=== PATIENT | female | born 1985 | race Caucasian/White ===

== ENCOUNTER 2018-07-22 20:25 | Emergency (ER) | END 2018-07-22 21:05 | disposition home or self-care (01) ==

== ENCOUNTER 2018-08-17 19:22 | Emergency (ER) | END 2018-08-17 23:54 | disposition home or self-care (01) ==

== ENCOUNTER 2019-01-29 16:48 | Outpatient (CLI) | payer MEDICAID ==
[~2019-01-29] VITALS: Ht 170.2 cm; Wt 76.1 kg
[~2019-01-29 16:48] MED LIST: ACET325T33 PO; ACET500C5 PO; IRON1TAB75 PO; LORA-186 PO; PREN-39 PO
[2019-01-29 17:59] VITALS: Ht 170.2 cm; Wt 76.1 kg
[2019-01-29 18:00] VITALS: BP 117/66; PULSE 77
--- NOTE | 2019-01-29 18:12 | PN ---
Triage Information Date/Time 01/29/2019 Reason for visit: Sent in from clinic to rule out DVT because of right leg swelling Weeks of Gestation 36 weeks and 6 days /Para 4 para 1 Diabetes: none Hypertention: none Objective Vital Signs Date Temp Pulse Resp B/P (MAP) Pulse Ox O2 O2 Flow FiO2 Time Delivery Rate 01/29/19 98.0 77 117/66 18:00 (83) Heart Rate: 140's Heart Rate Comments Reactive Contractions: None Exam Deferred Results/Medications Imaging Results No evidence of deep vein thrombosis. Disposition: Discharge Assessment/Plan Follow-up with the clinic as routine JIM VICK MD Jan 29, 2019 18:12
--- NOTE | 2019-01-29 18:55 | TRIAGE ---
OB Triage Datetime Report Generated by CPN: 01/29/2019 18:55 Datetime: 01/29/2019 18:06 Stage of : OB Triage Datetime: 01/29/2019 17:55 Stage of : OB Triage Assessment Type: Triage Maternal Assessment Level of Consciousness: Fully Conscious DTR's/Clonus: DTRs 2+; No Clonus Headache: Denies Blurred Vision: No Respiratory Effort: Unlabored; Regular Rhythm; Equal Expansion Breath Sounds, Left: Clear and Equal Breath Sounds, Right: Clear and Equal Nausea/Vomiting: Denies RUQ Epigastric Pain: Denies Facial Edema: None Temperature Route: Axillary Fall Risk Assessment History of Falling: (0) No Secondary Diagnosis: (0) No Ambulatory Aid: (0) Bedrest/Nurse Assist IV Therapy: (0) No Gait: (0) Normal/Bedrest/Immobile Mental Status: (0) Oriented to Own Ability Fall Score: 0 Fall Risk Score Definition: No Risk: No action required Labor Evaluation Frequency: 0 Monitor Mode: External Pattern: Normal: <= 5 Contractions in 10 Minutes Resting Tone [place]: Relaxed Heart Rate FHR Baseline Rate: 125 Monitor Mode: External US Variability: Moderate 6-25 bpm Accelerations: 10X10 Decelerations: None Category: Category I Pain Assessment Pain Scale: 6 Pain Presence: Intermittent Pain Type: Ache Pain Location: Right Leg Pain Goal: 3 Pain Relief Measures: Comfort Measures Datetime: 01/29/2019 17:53 Time of Arrival: 01/29/2019 16:35 EGA: 36.6 Arrived By: Ambulatory Arrived From: Dr. Quevedo Chief Complaint: REFERRED FROM CLINIC FOR DOPPLER STUDIES, DENIES LEAKING, BLEEDING OR UC'S Movement: Present Contractions: Denies/Absent Rupture of Membranes: Denies Vaginal Bleeding: None Vaginal Discharge: Denies Recent Sexual Intercouse: Denies Abdominal Trauma: Not Applicable Patient Complaints: None Time Provider Notified: 01/29/2019 18:06 Provider Notified: grisel Initial Plan: MONITOR, DOPPLER STUDIES BILATERAL Datetime: 01/29/2019 17:10 Labor Evaluation Frequency: x1 Monitor Mode: External Duration (sec)2399: 50 Quality: Mild Pattern: Normal: <= 5 Contractions in 10 Minutes Resting Tone [place]: Relaxed Heart Rate FHR Baseline Rate: 125 Monitor Mode: External US Variability: Moderate 6-25 bpm Accelerations: 10X10 Decelerations: None Category: Category I Pain Assessment Pain Scale: 0 Pain Presence: None/Denies Pain Type: N/A Pain Goal: 3 Pain Relief Measures: Comfort Measures Pain Assessment Comments: denies feeling
== END 2019-01-29 18:17 | disposition home or self-care (01) ==
LOC: OBT 16:48 → L-D 16:49 → OBT 18:17
PROVIDERS: ATTEND Obstetrics & Gynecology
DX: O26.893 Other specified pregnancy related conditions, third trimester (principal); M79.89 Other specified soft tissue disorders; Z3A.36 36 weeks gestation of pregnancy
CPT/HCPCS: 93970; Z7500; G0463

== ENCOUNTER 2019-02-05 18:01 | Inpatient (IN) | payer MEDICAID ==
[~2019-02-05 18:01] MED LIST changes: -ACET325T33 PO; -ACET500C5 PO; -LORA-186 PO
[2019-02-05] MEDS ORDERED: LACTATED RINGER'S 1,000 ML IV SCH (18:12)
[2019-02-05] MEDS ORDERED: OXYTOCIN 30 UNITS/LR 500 ML IV SCH ×2 (18:30)
[2019-02-05] MEDS ORDERED: BUTORPHANOL 2 MG INJ IV PRN (18:30)
[2019-02-05] MEDS ORDERED: OXYTOCIN 30 UNITS/LR 500 ML IV PRN ×2 (18:30→21:00)
[2019-02-05] MEDS ORDERED: MISOPROSTOL 200 MCG TAB PR PRN ×2 (18:30→21:00)
[2019-02-05] MEDS ORDERED: BUTORPHANOL 1 MG INJ IV PRN (18:30)
[2019-02-05] MEDS ORDERED: LIDOCAINE 1% (MPF) 30 ML INJ INJ PRN (18:30)
[2019-02-05] MEDS ORDERED: METHYLERGONOVINE 0.2 MG INJ IM PRN ×2 (18:30→21:00)
[2019-02-05] MEDS ORDERED: CARBOPROST 250 MCG INJ IM PRN ×2 (18:30→21:00)
[2019-02-05] MEDS ORDERED: AMPICILLIN 2 GM/NS (PMX) 100 ML IV ONE (18:30)
[2019-02-05] MEDS ORDERED: IBUPROFEN 600 MG TAB PO PRN (18:30)
[2019-02-05] MEDS ORDERED: KETOROLAC 30 MG INJ IV STA (18:39)
--- NOTE | 2019-02-05 18:57 | HP ---
Date/Time of Note Date/Time of Note DATE: 02/05/19 TIME: 18:52 OB - History Hx of Present Free Text/Dictation 33-year-old female 4 para 2 AB 1 at 37 weeks and 6 days gestation admitted complaining of onset of labor contractions at 4:30 PM Last Menstrual Period: May 08, 2018 Estimated Due Date: Feb 20, 2019 : 4 Para: 2 Spontaneous : 1 Care: Good Care Ultrasounds: Normal mid trimester US Obstetrical Complications: None, Other (low BRIAN-A) Medical Complications: None Past Family/Social History * Past Medical, Surgical, Family and Obstetric Histories reviewed from chart. Blood Type: A+ Rubella: immune RPR/VDRL: Negative GBS Status: Negative HBsAG: Negative OB Admission Exam Physical Exam HEENT: WNL Heart: Rhythm Normal Lungs: Clear, Equal Abdomen: WNL Extremities: Normal Reflexes: Normal Cervical Dilatation: 7cm Effacement: 100% Station: -2 Membranes: Intact Heart Rate: 140's Accelerations: Accelerations Present Decelerations: No Decelerations Varibility: Marked Contractions on Admission: < 5 Minutes Apart Date/Time Contractions Began: February 05, 2019 at 4:30 PM Frequency of Contractions: Every to 3-minute Duration: Over 1 minute Intensity: Firm Last 72 hours Lab Results CBC & BMP 02/05/19 18:16 OB Assessment/Plan Reason for admission: active labor Other Assessment: Term gestation Other plan: Proceed with spontaneous labor and vaginal delivery anticipated JIM VICK MD Feb 05, 2019 18:57
--- NOTE | 2019-02-05 18:59 | LDN ---
Date/Time of Note Date/Time of Note DATE: 02/05/19 TIME: 18:57 Delivery Summary Normal spontaneous vaginal delivery of a viable over intact perineum Weeks of Gestation 37 weeks and 5 6 days Placenta Delivered: Spontaneously, Intact & Complete Meconium: none Episiotomy: No Perineal laceration: 1 Laceration repair: First-degree perineal laceration was repaired using 2-[address] 1 needle Anesthesia type: Local Estimated blood loss: 200 Sponge & Needle done & correct: Yes All needle counts correct: Yes Any foreign bodies felt in the: No Delivery Information Sex Infant Sex: female Apgars 1 Minute: 9 5 Minute: 9 Suctioning Nose & mouth suctioned at david: Yes Delee suction performed: No Umbilical Cord Umbilical cord with: 3 Vessels Cord presentations: no nuchal cord Cord Blood was obtained: Yes Mother & Baby Disposition Disposition Mom & Baby to Maternity; Good: Yes (Mother and baby were recovered in good condition) Mom transferred to: Other (Maternity) Baby to NICU: No JIM VICK MD Feb 05, 2019 18:59
[2019-02-05 20:35] VITALS: PULSE 71; RESP 18
[2019-02-05] MEDS: LACTATED RINGER'S 1,000 ML IV* SCH (20:40)
[2019-02-05] MEDS ORDERED: DIBUCAINE 1% 30 GM OINT TOP PRN (21:00)
[2019-02-05] MEDS ORDERED: LANOLIN HPA 1 PKT TOP PRN (21:00)
[2019-02-05] MEDS ORDERED: BENZOCAINE 20% 56 ML SPRAY TOP PRN (21:00)
[2019-02-05] MEDS ORDERED: WITCH HAZEL/GLYCERIN PAD PR PRN (21:00)
[2019-02-05] MEDS ORDERED: ZOLPIDEM 5 MG TAB PO PRN (21:00)
[2019-02-05] MEDS ORDERED: HYDROCODONE/APAP (5/325) TAB PO PRN ×2 (21:00)
[2019-02-05] MEDS ORDERED: AMPICILLIN 1 GM/NS (PMX) 50 ML IV SCH (22:30)
[2019-02-05] MEDS: SENNA/DOCUSATE NA (8.6MG/50MG) TAB PO SCH (23:35)
[2019-02-05] MEDS: MAGNESIUM HYDROXIDE 30ML CUP PO SCH (23:35)
[2019-02-06 00:10] VITALS: BP 108/66; PULSE 68; RESP 18
[2019-02-06] MEDS: IBUPROFEN 600 MG TAB PO SCH ×4 (00:50→17:59)
[2019-02-06 04:00] VITALS: BP 95/56; PULSE 70; RESP 18
[2019-02-06] MEDS: LACTATED RINGER'S 1,000 ML IV* SCH (04:40)
[2019-02-06] MEDS: SENNA/DOCUSATE NA (8.6MG/50MG) TAB PO SCH ×2 (09:48→20:28)
[2019-02-06] MEDS: MAGNESIUM HYDROXIDE 30ML CUP PO SCH ×2 (09:49→20:28)
[2019-02-06 10:00] VITALS: BP 95/59; PULSE 95; RESP 16
--- NOTE | 2019-02-06 14:20 | DS ---
Date/Time of Note Date/Time of Note Home today or next day DATE: 02/06/19 TIME: 14:19 Obstetrical Discharge Record Final Diagnosis Final Diagnosis: Term delivered Other Final Diagnosis Status post vaginal delivery Vaginal Delivery Obstetrical Delivery: Spontaneous, Laceration, Repaired Condition on Discharge Physical Assessment Voiding: Yes Bowel Movement: Yes Breast: Soft, non-tender, Filling Fundus: Firm Abdomen and Incision: Abdomen is soft with present bowel sounds and fundus is firm Episiotomy: Perineum is healing well and appears clean Calf Tenderness: No Patient Condition: Good JIM VICK MD Feb 06, 2019 14:20
--- NOTE | 2019-02-06 14:32 | PD.PPDC ---
CORPORATE AUDITOR Discharge Instruction Provider Information Physician Information 33-year-old female had spontaneous vaginal delivery Diagnosis [id number] Final Diagnosis: Wzscj3w Status post vaginal delivery Condition [id number] Patient Condition: Wyxaz5x Good Diet Disil5Wo Diet: Nxxiw9o Resume Regular Diet Activity/Restrictions [id number] Activity: Pxwaf2v Normal Activity May Shower [id number] Restrictions: Zrtqo8v Nothing in the Vagina Miyjp9Bc Return to Work or School: Svvrl1c March 24, 2019 Follow-up Follow-up with Physician: 2, 4, Week/Weeks (In clinic) Return to clinic for [id number] OB Instructions: Felov4d Breast Tenderness Depression Comment: Pelvic rest for 6 weeks JIM VICK MD Feb 06, 2019 14:32
[2019-02-06] MEDS ORDERED: IBUP-1542 PO (14:33)
[2019-02-06 20:30] VITALS: BP 105/66; PULSE 66; RESP 18
[2019-02-07] MEDS: IBUPROFEN 600 MG TAB PO SCH ×3 (00:22→13:47)
[2019-02-07 04:15] VITALS: BP_SYST 58; PULSE 70; RESP 18
[2019-02-07 08:00] VITALS: BP 97/52; PULSE 78; RESP 18
[2019-02-07] MEDS ORDERED: VARICELLA VACCINE LIVE/PF 1,350 UNIT/0.5 ML ML SC* ONE (09:00)
[2019-02-07] MEDS: SENNA/DOCUSATE NA (8.6MG/50MG) TAB PO SCH (09:00)
[2019-02-07] MEDS ORDERED: DIPHTH/TET/ACEL PERTUSS (ADULT) 0.5 ML VIAL IM* ONE (09:00)
[2019-02-07] MEDS ORDERED: MEASLES,MUMPS,RUBELLA VACCINE INJ SC* ONE (09:00)
[2019-02-07] MEDS: MAGNESIUM HYDROXIDE 30ML CUP PO SCH (09:00)
--- NOTE | 2019-02-10 11:22 | DELSUM ---
Delivery Summary A-C Datetime Report Generated by CPN: 02/10/2019 11:20 DELIVERY PERSONNEL Pre Sales Systems Engineer: Duvo, Jennifer MATERNAL INFORMATION Delivery Anesthesia: Local Medications in Delivery: pitocin 30 units, lidocaine 1 % Delivery QBL (ml): 215 Placenta Cultured: No Maternal Complications: Other Other Maternal Complications: early term 37.6 LABOR SUMMARY EDC: 02/20/2019 00:00 No. Babies in Womb: 1 Attempted: No Labor Anesthesia: None LABOR INFORMATION Reason for Induction: Not Applicable Onset of Labor: 02/05/2019 16:30 Complete Dilatation: 02/05/2019 18:30 Oxytocin: N/A Group B Beta Strep: Negative Antibiotics # of Doses: 0 MEMBRANES Membranes Rupture Method: Spontaneous Rupture of Membranes: 02/05/2019 18:30 Length of Rupture (hr): 0.03 Amniotic Fluid Color: Clear Amniotic Fluid Amount: Moderate Amniotic Fluid Odor: None STAGES OF LABOR Stage 1 hr: 2 Stage 1 min: 0 Stage 2 hr: 0 Stage 2 min: 2 Stage 3 hr: 0 Stage 3 min: 2 Total Time in Labor hr: 2 Total Time in Labor min: 4 VAGINAL DELIVERY Episiotomy: None Laceration Extension: First Degree Laceration Type: Perineal Laceration Repair: Yes Initial Vag Sponge Count: 10 Final Vag Sponge Count: 10 Initial Vag Sharps Count: 1 Final Vag Sharps Count: 2 Sponge Count Correct: Yes; Vaginal Sweep Performed Sharps Count Correct: Yes BABY A INFORMATION Infant Delivery Date/Time: 02/05/2019 18:32 Method of Delivery: Vaginal Born in Route : No : N/A Forceps: N/A Vacuum Extraction: N/A Shoulder Dystocia : No SHOULDER DYSTOCIA BABY A Delivery Date/Time: 02/05/2019 18:32 PRESENTATION/POSITION BABY A Presentation: Cephalic Cephalic Presentation: Vertex Vertex Position: Left Occipital Anterior Breech Presentation: N/A PLACENTA INFORMATION BABY A Placenta Delivery Time : 02/05/2019 18:34 Placenta Method of Delivery: Spontaneous Placenta Status: Delivered SCORES BABY A Heart Rate 1 min: >100 bpm Resp Effort 1 min: Good Cry Reflex Irritability 1 min: Cough/Sneeze/Pulls Away Muscle Tone 1 min: Active Motion Color 1 min: Body [employer], Extremit Blue Resuscitation Effort 1 min: Tactile Stimulation SCORE 1 MIN: 9 Heart Rate 5 min: >100 bpm Resp Effort 5 min: Good Cry Reflex Irritability 5 min: Cough/Sneeze/Pulls Away Muscle Tone 5 min: Active Motion Color 5 min: Body [employer], Extremit Blue Resuscitation Effort 5 min: Tactile Stimulation SCORE 5 MIN: 9 INFORMATION BABY A Gestational Age at Delivery: 37.6 Gestational Status: Early Term- 37- 38.6 Weeks Infant Outcome : Liveborn Infant Condition : Stable Infant Sex: Female IDENTIFICATION/MEDS BABY A ID Band Number: [id number] ID Band Location: Right Leg; Left Arm Sensor Applied: Yes Sensor Number: [id number] Sensor Location : Cord Clamp Vitamin K Given : Not Given Erythromycin Given: Not Given WEIGHT/LENGTH BABY A Infant Birthweight (gm): 2960 Weight (lb): 6 Infant Weight (oz): 8 Length (in): 20.00 Length (cm): 50.80 CORD INFORMATION BABY A No. Cord Vessels: 3 Nuchal Cord : N/A Cord Blood Taken: Yes Suction: Mouth; Nose ASSESSMENT BABY A Infant Complications: Multiple Variable Decels Physical Findings at Delivery: Within Normal Limits Infant Respirations: Appears Normal Sewing Machine Adjuster/ALS Called : Yes Care By: Pam FOWLER Transferred To: Remains with Mother
--- NOTE | 2019-02-10 15:10 | NSTRPT ---
NST Information Datetime Report Generated by CPN: 02/10/2019 15:10 Datetime: 02/04/2019 08:37 NST Information EGA: 37.5 Test Number: 11 Time on Monitor: 02/04/2019 09:09 Time off Monitor: 02/04/2019 10:01 NST Duration (Min): 52 Reason for NST: Low BRIAN Test and Monitor Explained: Monitor Explained; Test Explained; Verbalized Understanding Pulse: 73 Resp: 18 SBP: 113 DBP: 59 Test Evaluation NST Interventions: None Patient States Movement: Present Contraction Frequency: X3/60-80/MILD/PAIN LEVEL 0 FHR Baseline : 125 Variability: Moderate 6-25bpm Accelerations: 15X15 Decelerations: None FHR Category: Category I NST Results: Reactive Comments: To u/s SUSI 10.1 CM CEPHALIC Some periods of minimal variability interspersed with moderate variability _ accels Electronically Signed By E-Signature: with User ID: [id number] Datetime: 01/31/2019 13:23 NST Information EGA: 37.1 NST Duration (Min): 20 Datetime: 01/30/2019 10:35 NST Information EGA: 37.0 NST Duration (Min): 28 Datetime: 01/29/2019 17:04 NST Information EGA: 36.4 Datetime: 01/27/2019 15:04 NST Information EGA: 36.4 NST Duration (Min): 36 Datetime: 01/23/2019 15:00 NST Information EGA: 36.0 NST Duration (Min): 30 Datetime: 01/13/2019 14:39 NST Information EGA: 34.4 NST Duration (Min): 24 Datetime: 01/02/2019 14:11 NST Information EGA: 33.0 NST Duration (Min): 34 Datetime: 12/30/2018 15:22 NST Information EGA: 32.4 NST Duration (Min): 22 Datetime: 12/26/2018 14:51 NST Information EGA: 32.0 Datetime: 12/26/2018 14:44 NST Duration (Min): 29
== END 2019-02-07 18:43 | disposition home or self-care (01) | DRG 807 ==
LOC: OBT 18:01 → L-D 18:02 → OBT 18:07 → PP1 20:31
PROVIDERS: ADMIT Obstetrics & Gynecology; ATTEND Obstetrics & Gynecology
PROC: 10E0XZZ Delivery of Products of Conception, External Approach (ICD-10-PCS; principal; 2019-02-05)
PROC: 4A1HXCZ Monitoring of Products of Conception, Cardiac Rate, External Approach (ICD-10-PCS; 2019-02-05)
PROC: 0HQ9XZZ Repair Perineum Skin, External Approach (ICD-10-PCS; 2019-02-05)
DX: O70.0 First degree perineal laceration during delivery (principal); Z37.0 Single live birth; Z3A.37 37 weeks gestation of pregnancy
CPT/HCPCS: 85025; 85610; 85730; 86592; 86850; 86900; 86901; 87340; 90716; G0463; J1885; J2590; J7120